=== PATIENT | female | born 1990 | race Asian ===

== ENCOUNTER 2017-01-13 20:22 | Emergency (ER) | payer OTHER ==
[2017-01-13 20:52] VITALS: BP 133/83
== END 2017-01-13 21:40 | disposition home or self-care (01) ==
LOC: ED 20:22
DX: S00.83XA Contusion of other part of head, initial encounter (principal); Z88.0 Allergy status to penicillin; Z88.2 Allergy status to sulfonamides; Z88.8 Allergy status to other drugs, medicaments and biological substances; W18.30XA Fall on same level, unspecified, initial encounter; Y93.89 Activity, other specified; Y92.89 Other specified places as the place of occurrence of the external cause; Y99.8 Other external cause status